=== PATIENT | female | born 1955 | race American Indian/Alaskan Native ===

== ENCOUNTER 2018-01-02 16:38 | Emergency (ER) | payer BC, OTHER ==
[2018-01-02] MEDS ORDERED: Metoclopramide 10 MG/2 ML SDV IV ONE (16:44)
[2018-01-02] MEDS ORDERED: Ondansetron 4 MG/2 ML SDV IVPUSH ONE (16:44)
[2018-01-02] MEDS ORDERED: diphenhydrAMINE 50 MG/ML SDV IVPUSH ONE (16:44)
[2018-01-02] MEDS ORDERED: Ketorolac 30 MG/ML SDV IVPUSH ONE (16:44)
[2018-01-02] MEDS ORDERED: Sodium Chloride 0.9% 1,000 ML IV ONE (16:44)
[2018-01-02 16:48] VITALS: BP 125/84
--- NOTE | 2018-01-02 16:52 | EDM.PDOC ---
ED HPI GENERAL MEDICAL PROBLEM - General Chief Complaint: Headache Stated Complaint: DIZZY/MIGRAINE Time Seen by Provider: 01/02/18 16:39 Source of Information: Reports: Patient History Limitations: Reports: No Limitations - History of Present Illness INITIAL COMMENTS - FREE TEXT/NARRATIVE: HISTORY AND PHYSICAL: History of present illness: Patient is a 62-year-old female who presents to the emergency room with complaints of dizziness and migraine headache. She states she has a long- standing history of migraines and has used Fiorinal with good relief. As of recently she has been increase in the frequency she's been getting migraines. Normally she may get 2-3 per month but over the past several days she has had them daily, with "3 today". Last week she saw her primary care provider who placed her on Topamax. She was instructed to take one tab and increase that to as tolerated. She states the medication has been "going well" until today. She woke up with a migraine headache and took a Fiorinal. Came dizzy and felt unbalanced and fell back into the TV stand. She is here at the emergency room with concerns that "something more is wrong... I've never had 3 migraines in 1 day". Her migraine headache is associated with dizziness, nausea, light sensitivity, and noise sensitivity. Reports she has the long-standing history of migraine headaches although has never had any CT or MRI of her brain. She denies any chest pain, palpitations, shortness of breath, fever or chills. She denies any abdominal pain, vomiting, diarrhea or constipation. Review of systems: As per history of present illness and below otherwise all systems reviewed and negative. Past medical history: As per history of present illness and as reviewed below otherwise noncontributory. Surgical history: As per history of present illness and as reviewed below otherwise noncontributory. Social history: No reported history of drug or alcohol abuse. Family history: As per history of present illness and as reviewed below otherwise noncontributory. Physical exam: General: Well developed and well-nourished 62-year-old female. Alert and oriented. Nontoxic appearing and in no acute distress. HEENT: Atraumatic, normocephalic, pupils equal and reactive bilaterally, negative for conjunctival pallor or scleral icterus, mucous membranes moist, throat clear, neck supple, nontender, trachea midline. No drooling or trismus noted. No meningeal signs Lungs: Clear to auscultation, breath sounds equal bilaterally, chest nontender. Heart: S1S2, regular rate and rhythm without overt murmur Abdomen: Soft, nondistended, nontender. Negative for masses or hepatosplenomegaly. Negative for costovertebral tenderness. Pelvis: Stable nontender. Genitourinary: Deferred. Rectal: Deferred. Skin: Intact, warm, dry. No lesions or rashes noted. Extremities: Atraumatic, negative for cords or calf pain. Neurovascular unremarkable. Neuro: Awake, alert, oriented. Cranial nerves II through XII unremarkable. Cerebellum unremarkable. Motor and sensory unremarkable throughout. Exam nonfocal. Notes: Discussed possible testing options available through the emergency room. She would like a head CT done today. I will do routine lab work along with a troponin as she had a dizzy episode which sounds possibly near syncopal (r/o cardiac involvement). Medications for migraine will be given, her is here with her. CBC, CMP, troponin are normal. EKG shows a normal sinus rhythm with a heart rate of 55. The patient states that her "normal" is usually hypotensive with a low-pulse rate in the 50s to 60s. Head CT shows no acute findings. This information was shared with the patient. She states she does feel "much better" after receiving the IV fluid and medications. She says her dizziness and migraine pain has subsided a lot. She feels comfortable going home. I did offer admission (if she wasn't feeling better or uncomfortable going home) which she declined. She has an appointment next week with her primary caregiver. We discussed the need for follow up with a neurologist to help resolve her increasingly problematic migraines and further management. She is agreeable and voices understanding. She denies any further questions at this time. Diagnostics: CBC, CMP, Troponin, EKG, Head CT Therapeutics: IV fluid, Zofran, Reglan, Toradol, Benadryl Impression: Migraine Headache Dizziness Plan: 1. Labs and head CT were normal today. I do not have an explanation as to why your migraines are becoming more frequent. I would like you to follow-up with a neurologist for better management of your migraine headaches and to come up with a treatment plan that works best for you. 2. Increase your fluids to prevent dehydration. You may use an [id number] meclizine for dizziness if this continues. 3. Return to the ED as needed and as discussed. Definitive disposition and diagnosis as appropriate pending reevaluation and review of above. Duration: Chronic Location: Reports: Head Frontal Headache Pain Score (Numeric/FACES): 9 - Related Data Allergies Allergy/AdvReac Type Severity Reaction Status Date / Time codeine Allergy Abdominal Verified 01/02/18 16:45 Pain morphine Allergy Swelling Verified 01/02/18 16:45 adhesive Allergy Redness Uncoded 01/02/18 16:45 Home Meds: Home Meds Allopurinol [Zyloprim] 300 mg PO DAILY 05/19/14 [History] Hydrochlorothiazide 25 mg PO DAILY 05/19/14 [History] Sucralfate [Carafate] 1 gm PO BID 05/19/14 [History] Butalbital/Aspirin/Caffeine [Fiorinal 50-325-40 MG] 1 tab PO ASDIRECTED PRN [History] Cyclobenzaprine HCl 1 tab PO ASDIRECTED PRN 09/25/16 [History] Esomeprazole Magnesium [Nexium] 1 cap PO BID 09/25/16 [History] Estradiol [Vagifem] 1 tab VAG ASDIRECTED 09/25/16 [History] L.acidoph,Paracasei, B.lactis [Probiotic] 1 cap PO DAILY 09/25/16 [History] Past Medical History HEENT History: Reports: Cataract, Impaired Vision Other HEENT History: wears glasses Cardiovascular History: Reports: None Respiratory History: Reports: None Gastrointestinal History: Reports: PUD Genitourinary History: Reports: Renal Calculus 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 Musculoskeletal History: Reports: Back Pain, Chronic Neurological History: Reports: None Psychiatric History: Reports: None Endocrine/Metabolic History: Reports: Obesity/BMI 30+ Hematologic History: Reports: Anemia, Blood Transfusion(s) Immunologic History: Reports: None Oncologic (Cancer) History: Reports: Uterine Dermatologic History: Reports: None - Past Surgical History HEENT Surgical History: Reports: Cataract Surgery GI Surgical History: Reports: Appendectomy, Bariatric Procedure, Cholecystectomy , Colonoscopy, Other (See Below) Female Surgical History: Reports: Hysterectomy, Lithotripsy/ESWL, Salpingo- Oophorectomy Musculoskeletal Surgical History: Reports: Arthroscopic Procedure Social & Family History - Family History Family Medical History: Noncontributory - Tobacco Use Smoking Status *Q: Never Smoker Second Hand Smoke Exposure: No - Alcohol Use Days Per Week of Alcohol Use: 0 Number of Drinks Per Day: 0 Total Drinks Per Week: 0 - Recreational Drug Use Recreational Drug Use: No Drug Use in Last 12 Months: No ED ROS GENERAL - Review of Systems Review Of Systems: ROS reveals no pertinent complaints other than HPI. - Physical Exam Exam: See Below (See dictation) Course - Vital Signs Last Recorded V/S: Last Vital Signs Temp 97.9 F 01/02/18 16:45 Pulse 75 01/02/18 16:45 Resp 18 01/02/18 16:45 BP 125/84 01/02/18 16:45 Pulse Ox 97 01/02/18 16:45 - Orders/Labs/Meds Orders: Active Orders 24 hr Category Date Time Status EKG Documentation Completion [RC] STAT Care 01/02/18 16:44 Active Head wo Cont [CT] Stat Exams 01/02/18 16:44 Taken Labs: Laboratory Tests 01/02/18 01/02/18 Range/Units 16:51 16:51 WBC 6.58 (4.0-11.0) K/uL RBC 4.26 L (4.30-5.90) M/uL Hgb 13.3 (12.0-16.0) g/dL Hct 38.3 (36.0-46.0) % MCV 89.9 (80.0-98.0) fL MCH 31.2 (27.0-32.0) pg MCHC 34.7 (31.0-37.0) g/dL RDW Std Deviation 45.2 (28.0-62.0) fl RDW Coeff of Mustapha 14 (11.0-15.0) % Plt Count 247 (150-400) K/uL MPV 10.00 (7.40-12.00) fL Neut % (Auto) 54.8 (48.0-80.0) % Lymph % (Auto) 34.5 (16.0-40.0) % [place] % (Auto) 8.4 (0.0-15.0) % Eos % (Auto) 2.0 (0.0-7.0) % Baso % (Auto) 0.3 (0.0-1.5) % Neut # (Auto) 3.6 (1.4-5.7) K/uL Lymph # (Auto) 2.3 (0.6-2.4) K/uL [place] # (Auto) 0.6 (0.0-0.8) K/uL Eos # (Auto) 0.1 (0.0-0.7) K/uL Baso # (Auto) 0.0 (0.0-0.1) K/uL Nucleated RBC % 0.0 /100WBC Nucleated RBCs # 0 K/uL Sodium 137 (136-145) mmol/L Potassium 3.4 L (3.5-5.1) mmol/L Chloride 101 (98-107) mmol/L Carbon Dioxide 28.1 (21.0-32.0) mmol/L BUN 17 (7.0-18.0) mg/dL Creatinine 1.0 (0.6-1.0) mg/dL Est Cr Clr Drug Dosing 42.43 mL/min Estimated GFR (MDRD) 56.4 ml/min Glucose 97 (74-106) mg/dL Calcium 9.5 (8.5-10.1) mg/dL Total Bilirubin 0.2 (0.2-1.0) mg/dL AST 27 (15-37) IU/L ALT 26 (14-63) IU/L Alkaline Phosphatase 138 H (46-116) U/L Troponin I < 0.050 (0.000-0.056) ng/mL Total Protein 7.4 (6.4-8.2) g/dL Albumin 3.7 (3.4-5.0) g/dL Globulin 3.7 H (2.0-3.5) g/dL Albumin/Globulin Ratio 1.0 L (1.3-2.8) Meds: Medications Discontinued Medications Generic Name Dose Route Start Last Admin Trade Name Freq PRN Reason Stop Dose Admin Diphenhydramine HCl 50 mg 01/02/18 16:44 01/02/18 17:10 Benadryl IVPUSH 01/02/18 16:45 50 mg ONETIME ONE Administration Sodium Chloride 1,000 mls @ 999 mls/hr 01/02/18 16:44 01/02/18 17:00 Normal Saline IV 01/02/18 17:44 999 mls/hr STAT ONE Administration Ketorolac Tromethamine 30 mg 01/02/18 16:44 01/02/18 17:06 Toradol IVPUSH 01/02/18 16:45 30 mg ONETIME ONE Administration Metoclopramide HCl 10 mg 01/02/18 16:44 01/02/18 17:08 Reglan IV 01/02/18 16:45 10 mg ONETIME ONE Administration Ondansetron HCl 4 mg 01/02/18 16:44 01/02/18 17:02 Zofran IVPUSH 01/02/18 16:45 4 mg ONETIME ONE Administration Departure - Departure Time of Disposition: 18:03 Disposition: Home, Self-Care 01 Clinical Impression: Migraine - Discharge Information Instructions: Migraine Headache, [id number] Referrals: PCP,None [Primary Care Provider] - Forms: ED Department Discharge Additional Instructions: The following information is given to patients seen in the emergency department who are being discharged to home. This information is to outline your options for follow-up care. We provide all patients seen in our emergency department with a follow-up referral. The need for follow-up, as well as the timing and circumstances, are variable depending upon the specifics of your emergency department visit. If you don't have a primary care physician on staff, we will provide you with a referral. We always advise you to contact your personal physician following an emergency department visit to inform them of the circumstance of the visit and for follow-up with them and/or the need for any referrals to a consulting specialist. The emergency department will also refer you to a specialist when appropriate. This referral assures that you have the opportunity for follow-up care with a specialist. All of these measure are taken in an effort to provide you with optimal care, which includes your follow-up. Under all circumstances we always encourage you to contact your private physician who remains a resource for coordinating your care. When calling for follow-up care, please make the office aware that this follow-up is from your recent emergency room visit. If for any reason you are refused follow-up, please contact the [facility] Emergency Department at and asked to speak to the emergency department charge nurse. [facility] [address] [place] [id number] [facility] Special[facility] - Neurology Professional Building [address] [place] [address], [address] [place] [address] 1. Labs and head CT were normal today. I do not have an explanation as to why your migraines are becoming more frequent. I would like you to follow-up with a neurologist for better management of your migraine headaches and to come up with a treatment plan that works best for you. 2. Increase your fluids to prevent dehydration. You may use an [id number] meclizine for dizziness if this continues. 3. Return to the ED as needed and as discussed. - My Orders Last 24 Hours: My Active Orders 01/02/18 16:44 EKG Documentation Completion [RC] STAT Head wo Cont [CT] Stat - Assessment/Plan Last 24 Hours: My Active Orders 01/02/18 16:44 EKG Documentation Completion [RC] STAT Head wo Cont [CT] Stat
[2018-01-02 17:21] LABS: CHLORIDE,CL 101 mmol/L (98-107); SODIUM,NA 137 mmol/L (136-145)
--- NOTE | 2018-01-03 09:32 | CT ---
EXAM DATE: 01/02/18 PATIENT'S AGE: 62 Patient: STEPHANE HARRY Facility: [place], [place] Site . Site : 1955 Study: CT Head [id number] 5:50:18 PM Ordering Physician: Doctor Millan Final Report: INDICATION: Headache, dizziness, fall. TECHNIQUE: Standard noncontrast head CT performed. FINDINGS: There is no intracranial hemorrhage or fluid collection. The knapp-white matter differentiation is maintained. The ventricles are of normal size and morphology. The basal cisterns are clear. The visualized orbits, sinuses and mastoids are unremarkable. The calvarium is intact. IMPRESSION: No acute intracranial abnormality. Please note that all CT scans at this facility use dose modulation, iterative reconstruction, and/or weight-based dosing when appropriate to reduce radiation dose to as low as reasonably achievable. Dictated by Vinny Horton MD @ Jan 02 2018 5:52PM (Electronic Signature) Report Signed by Proxy. MTDD
== END 2018-01-02 18:25 | disposition home or self-care (01) ==
LOC: MW.ED 16:38
DX: G43.909 Migraine, unspecified, not intractable, without status migrainosus (principal); Z88.5 Allergy status to narcotic agent; Z91.09 Other allergy status, other than to drugs and biological substances; Z79.899 Other long term (current) drug therapy
CPT/HCPCS: 36415; 70450; 80053; 84484; 85025; 96361; 96374; 96375; 99284; J1200; J1885; J2405; J2765; J7040; 99283

== ENCOUNTER 2019-05-16 13:29 | Emergency (ER) | payer BC, OTHER ==
[2019-05-16] MEDS ORDERED: HYDROmorphone 1 MG/ML Syringe IM ONE (13:57)
[2019-05-16] MEDS ORDERED: Ondansetron 4 MG Tab.DIS PO ONE (13:57)
--- NOTE | 2019-05-16 14:06 | EDM.PDOC ---
ED HPI GENERAL MEDICAL PROBLEM - General Chief Complaint: Lower Extremity Injury/Pain Stated Complaint: PAIN IN LEFT LEG AND HIP Time Seen by Provider: 05/16/19 13:40 Source of Information: Reports: Patient History Limitations: Reports: No Limitations - History of Present Illness INITIAL COMMENTS - FREE TEXT/NARRATIVE: History of present illness: []Patient has chronic left hip pain and is scheduled for hip replacement by Dr. Aguilar on June 12 mahnaz and Sobeida. Today she spontaneously started having severe left hip pain where she was unable to bear weight and pain radiated down her leg. He denies any numbness or tingling, back pain or incontinence. She states she did not fall or twist or have any type of new injury to the hip. She had an MRI of her hip done recently which showed ischiofemoral impingement and arthritis. He should states the only occasion that works for her is Dilaudid she has bad reactions to every other medication. Review of systems: As per history of present illness and below otherwise all systems reviewed and negative. Past medical history: As per history of present illness and as reviewed below otherwise noncontributory. Surgical history: As per history of present illness and as reviewed below otherwise noncontributory. Social history: No reported history of drug or alcohol abuse. Family history: As per history of present illness and as reviewed below otherwise noncontributory. Physical exam: General: Well developed, well nourished in NAD HEENT: Atraumatic, normocephalic, pupils reactive, negative for conjunctival pallor or scleral icterus, mucous membranes moist, throat clear, neck supple, nontender, trachea midline. Lungs: Clear to auscultation, breath sounds equal bilaterally, chest nontender. Heart: S1S2, regular, negative for clicks, rubs, or JVD. Abdomen: NABS, Soft, nondistended, nontender. Negative for masses or hepatosplenomegaly. Negative for costovertebral tenderness. Pelvis: Stable nontender. Genitourinary: Deferred. Rectal: Deferred. Extremities: Atraumatic, negative for cords or calf pain. Neurovascular unremarkable. Neuro: Awake, alert, oriented. Cranial nerves II through XII unremarkable. Cerebellum unremarkable. Motor and sensory unremarkable throughout. Exam nonfocal. Skin:warm and dry Diagnostics: None Therapeutics: Dilaudid and Zofran ED Course: Stable patient does not want to use crutches she states she has a walker at home and can use a scooter at work Impression: Left hip pain Prescriptions: Dilaudid 2 mg tablets #10, no refills Plan: Take meds as directed, follow up with your primary care physician, return to ER if symptoms worsen or change. Definitive disposition and diagnosis as appropriate pending reevaluation and review of above. Left Leg Pain Score (Numeric/FACES): 8 - Related Data Allergies Allergy/AdvReac Type Severity Reaction Status Date / Time codeine Allergy Abdominal Verified 05/16/19 13:49 Pain morphine Allergy Swelling Verified 05/16/19 13:49 adhesive Allergy Redness Uncoded 05/16/19 13:49 Home Meds: Home Meds Allopurinol [Zyloprim] 500 mg PO DAILY 05/19/14 [History] Hydrochlorothiazide 25 mg PO DAILY 05/19/14 [History] Sucralfate [Carafate] 1 gm PO QID 05/19/14 [History] Esomeprazole Magnesium [Nexium] 1 cap PO BID 09/25/16 [History] Aspirin/Butalbital/Caffeine [Fiorinal 50-325-40 MG] 1 cap PO DAILY 01/02/18 [ History] Topiramate [Trokendi Xr] 25 mg PO ASDIRECTED 01/02/18 [History] HYDROmorphone [Dilaudid] 1 mg PO Q6H PRN #10 tab 05/16/19 [Rx] Past Medical History HEENT History: Reports: Cataract, Impaired Vision Other HEENT History: wears glasses Cardiovascular History: Reports: None Respiratory History: Reports: None Gastrointestinal History: Reports: PUD Genitourinary History: Reports: Renal Calculus 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 Musculoskeletal History: Reports: Back Pain, Chronic Neurological History: Reports: None Psychiatric History: Reports: None Endocrine/Metabolic History: Reports: Obesity/BMI 30+ Hematologic History: Reports: Anemia, Blood Transfusion(s) Immunologic History: Reports: None Oncologic (Cancer) History: Reports: Uterine Dermatologic History: Reports: None - Past Surgical History Head Surgeries/Procedures: Reports: None HEENT Surgical History: Reports: Cataract Surgery, Tonsillectomy GI Surgical History: Reports: Appendectomy, Bariatric Procedure, Cholecystectomy , Colonoscopy, Other (See Below) Female Surgical History: Reports: Hysterectomy, Lithotripsy/ESWL, Salpingo- Oophorectomy Musculoskeletal Surgical History: Reports: Arthroscopic Procedure, Shoulder Surgery Social & Family History - Family History Family Medical History: Noncontributory - Tobacco Use Smoking Status *Q: Never Smoker - Caffeine Use Caffeine Use: Reports: Soda - Recreational Drug Use Recreational Drug Use: No Review of Systems - Review of Systems Review Of Systems: See Below ED EXAM, GENERAL - Physical Exam Exam: See Below Course - Vital Signs Last Recorded V/S: Last Vital Signs Temp 97.0 F 05/16/19 13:47 Pulse 64 05/16/19 13:47 Resp 18 05/16/19 13:47 BP 134/74 05/16/19 13:47 Pulse Ox 96 05/16/19 13:47 - Orders/Labs/Meds Meds: Medications Discontinued Medications Generic Name Dose Route Start Last Admin Trade Name Freq PRN Reason Stop Dose Admin Hydromorphone HCl 1 mg 05/16/19 13:57 Dilaudid IM 05/16/19 13:58 ONETIME ONE Ondansetron HCl 4 mg 05/16/19 13:57 Zofran Odt PO 05/16/19 13:58 ONETIME ONE Departure - Departure Time of Disposition: 14:04 Disposition: Home, Self-Care 01 Condition: Good Clinical Impression: Left hip pain - Discharge Information *PRESCRIPTION DRUG MONITORING PROGRAM REVIEWED*: No *COPY OF PRESCRIPTION DRUG MONITORING REPORT IN PATIENT GAGE: No Prescriptions: HYDROmorphone [Dilaudid] 1 mg PO Q6H PRN #10 tab PRN Reason: Pain Referrals: PCP,Not In Area [Primary Care Provider] - Additional Instructions: The following information is given to patients seen in the emergency department who are being discharged to home. This information is to outline your options for follow-up care. We provide all patients seen in our emergency department with a follow-up referral. The need for follow-up, as well as the timing and circumstances, are variable depending upon the specifics of your emergency department visit. If you don't have a primary care physician on staff, we will provide you with a referral. We always advise you to contact your personal physician following an emergency department visit to inform them of the circumstance of the visit and for follow-up with them and/or the need for any referrals to a consulting specialist. The emergency department will also refer you to a specialist when appropriate. This referral assures that you have the opportunity for follow-up care with a specialist. All of these measure are taken in an effort to provide you with optimal care, which includes your follow-up. Under all circumstances we always encourage you to contact your private physician who remains a resource for coordinating your care. When calling for follow-up care, please make the office aware that this follow-up is from your recent emergency room visit. If for any reason you are refused follow-up, please contact the [facility] Emergency Department at and asked to speak to the emergency department charge nurse. Take meds as directed, follow up with your primary care physician, return to ER if symptoms worsen or change. [facility] [address] [place] [id number]
[2019-05-16 14:40] VITALS: BP 109/62; PULSE 66
== END 2019-05-16 14:41 | disposition home or self-care (01) ==
LOC: MW.ED 13:29
DX: M25.552 Pain in left hip (principal); E66.9 Obesity, unspecified; Z68.30 Body mass index [BMI] 30.0-30.9, adult; Z88.5 Allergy status to narcotic agent; Z79.82 Long term (current) use of aspirin; Z79.84 Long term (current) use of oral hypoglycemic drugs; Z79.899 Other long term (current) drug therapy
CPT/HCPCS: 96372; 99283; A9270; J1170

== ENCOUNTER 2019-06-02 17:12 | Observation (INO) | payer BC, OTHER ==
[2019-06-02] MEDS ORDERED: Sodium Chloride 0.9% 10 ML Syringe FLUSH PRN (17:14)
[2019-06-02] MEDS ORDERED: Sodium Chloride 0.9% 2.5 ML Syringe FLUSH PRN (17:14)
[2019-06-02] MEDS ORDERED: Sodium Chloride 0.9% 1,000 ML IV ONE (17:14)
--- NOTE | 2019-06-02 17:15 | EDM.PDOC ---
ED HPI GENERAL MEDICAL PROBLEM - General Chief Complaint: Chest Pain Stated Complaint: CHEST PAIN Time Seen by Provider: 06/02/19 17:15 Source of Information: Reports: Patient History Limitations: Reports: No Limitations - History of Present Illness INITIAL COMMENTS - FREE TEXT/NARRATIVE: HISTORY AND PHYSICAL: History of present illness: Patient is a 63-year-old female presented to the ED with complaint of chest pain. She states that 3 days ago while mowing her lawn she had a midsternal burning chest pain that radiated to her back. She thought maybe she is having reflux and took Carafate and rested and shortly after it resolved. She went back outside to mow again and this occurred again. She states that she was outside so she was sweating when this occurred and was slightly short of breath. She states it resolved after an hour. Since then she has been having a heaviness in her chest. She is not having any shortness of breath, diaphoresis, nausea, vomiting, abdominal pain, diarrhea, headache, dizziness. Patient has history of migraines and kidney stones but denies past cardiac history. Denies tobacco or illicit drug use. Review of systems: As per history of present illness and below otherwise all systems reviewed and negative. Past medical history: As per history of present illness and as reviewed below otherwise noncontributory. Surgical history: As per history of present illness and as reviewed below otherwise noncontributory. Social history: No reported history of drug or alcohol abuse. Family history: As per history of present illness and as reviewed below otherwise noncontributory. Physical exam: General: Patient sitting comfortably in no acute distress and nontoxic appearing HEENT: Atraumatic, normocephalic, pupils reactive, negative for conjunctival pallor or scleral icterus, mucous membranes moist, throat clear, neck supple, nontender, trachea midline. No meningeal signs. Lungs: Clear to auscultation, breath sounds equal bilaterally, chest nontender. Heart: S1S2, regular, negative for clicks, rubs, or overt murmur. Abdomen: Soft, nondistended, nontender. Negative for masses or hepatosplenomegaly. Negative for costovertebral tenderness. No rigidity, rebound , guarding. Pelvis: Stable nontender. Genitourinary: Deferred. Rectal: Deferred. Extremities: Atraumatic, negative for cords or calf pain. Neurovascular unremarkable. Neuro: Awake, alert, oriented. Cranial nerves II through XII unremarkable. Cerebellum unremarkable. Motor and sensory unremarkable throughout. Exam nonfocal. Notes: Diagnostics: CBC, CMP, troponin, EKG, chest x-ray Therapeutics: 1L NS IV 40mEq Potassium PO Prescriptions: Impression: Chest pain r/o ACS, hypokalemia Plan: Discussed with Dr. James, patient will be admitted to observation on telemetry. Definitive disposition and diagnosis as appropriate pending reevaluation and review of above. chest Pain Score (Numeric/FACES): 3 - Related Data Allergies Allergy/AdvReac Type Severity Reaction Status Date / Time codeine Allergy Abdominal Verified 06/02/19 17:12 Pain morphine Allergy Swelling Verified 06/02/19 17:12 adhesive Allergy Redness Uncoded 05/16/19 13:49 Home Meds: Home Meds Allopurinol [Zyloprim] 500 mg PO DAILY 05/19/14 [History] Hydrochlorothiazide 25 mg PO DAILY 05/19/14 [History] Sucralfate [Carafate] 1 gm PO QID 05/19/14 [History] Esomeprazole Magnesium [Nexium] 1 cap PO BID 09/25/16 [History] Aspirin/Butalbital/Caffeine [Fiorinal 50-325-40 MG] 1 cap PO DAILY 01/02/18 [ History] Topiramate [Trokendi Xr] 25 mg PO ASDIRECTED 01/02/18 [History] Past Medical History HEENT History: Reports: Cataract, Impaired Vision Other HEENT History: wears glasses Cardiovascular History: Reports: None Respiratory History: Reports: None Gastrointestinal History: Reports: PUD Genitourinary History: Reports: Renal Calculus [employer] FI[employer] History: Reports: None Musculoskeletal History: Reports: Back Pain, Chronic Neurological History: Reports: None Psychiatric History: Reports: None Endocrine/Metabolic History: Reports: Obesity/BMI 30+ Hematologic History: Reports: Anemia, Blood Transfusion(s) Immunologic History: Reports: None Oncologic (Cancer) History: Reports: Uterine Dermatologic History: Reports: None - Past Surgical History HEENT Surgical History: Reports: Cataract Surgery, Tonsillectomy Musculoskeletal Surgical History: Reports: Arthroscopic Procedure, Shoulder Surgery Social & Family History - Family History Family Medical History: Noncontributory - Caffeine Use Caffeine Use: Reports: Soda ED ROS GENERAL - Review of Systems Review Of Systems: ROS reveals no pertinent complaints other than HPI. ED EXAM, GENERAL - Physical Exam Exam: See Below (See dictation) Course - Vital Signs Last Recorded V/S: Last Vital Signs Temp 96.2 F 06/02/19 17:13 Pulse 62 06/02/19 17:13 Resp 16 06/02/19 17:13 BP 136/79 06/02/19 17:13 Pulse Ox 97 06/02/19 17:13 - Orders/Labs/Meds Orders: Active Orders 24 hr Category Date Time Status Cardiac Monitoring [RC] . DIRECTED Care 06/02/19 17:14 Active EKG Documentation Completion [RC] STAT Care 06/02/19 17:15 Active MAGNESIUM [CHEM] Stat Lab 06/02/19 19:17 Ordered TROPONIN I [CHEM] Q6H Lab 06/02/19 23:15 Ordered TROPONIN I [CHEM] Q6H Lab 06/03/19 05:15 Ordered UA W/MICROSCOPIC [URIN] Stat Lab 06/02/19 17:15 Ordered Sodium Chloride 0.9% [Saline Flush] Med 06/02/19 17:14 Active 10 ml FLUSH ASDIRECTED PRN Sodium Chloride 0.9% [Saline Flush] Med 06/02/19 17:14 Active 2.5 ml FLUSH ASDIRECTED PRN Saline Lock Insert [OM.PC] Stat Oth 06/02/19 17:14 Ordered Medication Orders Sodium Chloride (Saline Flush) 10 ml FLUSH ASDIRECTED PRN PRN Reason: Keep Vein Open Sodium Chloride (Saline Flush) 2.5 ml FLUSH ASDIRECTED PRN PRN Reason: Keep Vein Open Labs: Laboratory Tests 06/02/19 06/02/19 06/02/19 Range/Units 17:15 17:15 17:15 WBC 11.06 H (4.0-11.0) K/uL RBC 4.66 (4.30-5.90) M/uL Hgb 14.5 (12.0-16.0) g/dL Hct 42.1 (36.0-46.0) % MCV 90.3 (80.0-98.0) fL MCH 31.1 (27.0-32.0) pg MCHC 34.4 (31.0-37.0) g/dL RDW Std Deviation 45.0 (28.0-62.0) fl RDW Coeff of Mustapha 14 (11.0-15.0) % Plt Count 305 (150-400) K/uL MPV 10.60 (7.40-12.00) fL Neut % (Auto) 62.5 (48.0-80.0) % Lymph % (Auto) 28.3 (16.0-40.0) % [place] % (Auto) 8.4 (0.0-15.0) % Eos % (Auto) 0.7 (0.0-7.0) % Baso % (Auto) 0.1 (0.0-1.5) % Neut # (Auto) 6.9 H (1.4-5.7) K/uL Lymph # (Auto) 3.1 H (0.6-2.4) K/uL [place] # (Auto) 0.9 H (0.0-0.8) K/uL Eos # (Auto) 0.1 (0.0-0.7) K/uL Baso # (Auto) 0.0 (0.0-0.1) K/uL Nucleated RBC % 0.0 /100WBC Nucleated RBCs # 0 K/uL INR 0.99 Sodium 136 (136-145) mmol/L Potassium 2.8 L (3.5-5.1) mmol/L Chloride 97 L (98-107) mmol/L Carbon Dioxide 31.2 (21.0-32.0) mmol/L BUN 17 (7.0-18.0) mg/dL Creatinine 0.8 (0.6-1.0) mg/dL Est Cr Clr Drug Dosing 52.37 mL/min Estimated GFR (MDRD) > 60.0 ml/min Glucose 110 H (74-106) mg/dL Calcium 9.9 (8.5-10.1) mg/dL Total Bilirubin 0.4 (0.2-1.0) mg/dL AST 26 (15-37) IU/L ALT 26 (14-63) IU/L Alkaline Phosphatase 139 H (46-116) U/L Troponin I < 0.050 (0.000-0.056) ng/mL Total Protein 7.7 (6.4-8.2) g/dL Albumin 3.8 (3.4-5.0) g/dL Globulin 3.9 (2.6-4.0) g/dL Albumin/Globulin Ratio 1.0 (0.9-1.6) Meds: Medications Generic Name Dose Route Start Last Admin Trade Name Bill PRN Reason Stop Dose Admin Sodium Chloride 10 ml 06/02/19 17:14 Saline Flush FLUSH ASDIRECTED PRN Keep Vein Open Sodium Chloride 2.5 ml 06/02/19 17:14 Saline Flush FLUSH ASDIRECTED PRN Keep Vein Open Discontinued Medications Generic Name Dose Route Start Last Admin Trade Name Bill PRN Reason Stop Dose Admin Sodium Chloride 1,000 mls @ 999 mls/hr 06/02/19 17:14 06/02/19 17:23 Normal Saline IV 06/02/19 18:14 999 mls/hr BOLUS ONE Administration Potassium Chloride 40 meq 06/02/19 18:24 06/02/19 18:53 Potassium Chloride PO 06/02/19 18:25 40 meq ONETIME ONE Administration Departure - Departure Time of Disposition: 17:44 Disposition: Refer to Observation Condition: Good Clinical Impression: Hypokalemia, Chest pain Clinical Impression: (Ruled Out): Head injury Referrals: PCP,Unobtain [Primary Care Provider] - Forms: ED Department Discharge - My Orders Last 24 Hours: My Active Orders 06/02/19 17:14 Cardiac Monitoring [RC] . DIRECTED Sodium Chloride 0.9% [Saline Flush] 10 ml FLUSH ASDIRECTED PRN Sodium Chloride 0.9% [Saline Flush] 2.5 ml FLUSH ASDIRECTED PRN Saline Lock Insert [OM.PC] Stat 06/02/19 17:15 EKG Documentation Completion [RC] STAT UA W/MICROSCOPIC [URIN] Stat - Assessment/Plan Last 24 Hours: My Active Orders 06/02/19 17:14 Cardiac Monitoring [RC] . DIRECTED Sodium Chloride 0.9% [Saline Flush] 10 ml FLUSH ASDIRECTED PRN Sodium Chloride 0.9% [Saline Flush] 2.5 ml FLUSH ASDIRECTED PRN Saline Lock Insert [OM.PC] Stat 06/02/19 17:15 EKG Documentation Completion [RC] STAT UA W/MICROSCOPIC [URIN] Stat
[2019-06-02 18:05] LABS: CHLORIDE,CL 97 mmol/L (98-107); SODIUM,NA 136 mmol/L (136-145)
--- NOTE | 2019-06-02 18:18 | CR ---
Indication: Chest pain. Technique: A single AP portable view of the chest was obtained. Comparison: December 05, 2015. Findings: The heart is normal in size. The lungs are clear. No infiltrate, pleural effusion, or pneumothorax is identified. Impression: No acute cardiopulmonary process. Dictated by Cecilia Tate MD @ Jun 02 2019 6:16PM Signed by Dr. Cecilia Tate @ Jun 02 2019 6:17PM
[2019-06-02] MEDS ORDERED: Potassium Chloride 10% 20 MEQ/15 ML Soln 30 ML UD Cup PO ONE (18:24)
--- NOTE | 2019-06-02 20:12 | PCM.HP.2 ---
H&P History of Present Illness - General Date of Service: 06/02/19 Admit Problem/Dx: Admission Diagnosis/Problem Admission Diagnosis/Problem Chest pain - History of Present Illness Initial Comments - Free Text/Narative: 63 yo female who presents with three day history of chest pain. Patient reports three days ago developing substernal chest pain which she describes as a burning sensation. It occurred while mowing the yard she stopped and rested and when she started to mow again the pain reoccured. She believes she may hove gotten overheated. the next two days she has had chest pressure. She reports having chest pain when she has acid reflux. She has a history of perforated ulcers. She states the pain is different to her normal heart burn although she took Carafate and the pain did improve. chest Pain Score (Numeric/FACES): 3 - Related Data Allergies/Adverse Reactions: Allergies Allergy/AdvReac Type Severity Reaction Status Date / Time codeine Allergy Abdominal Verified 06/02/19 21:31 Pain morphine Allergy Swelling Verified 06/02/19 21:31 adhesive Allergy Redness Uncoded 06/02/19 21:31 Home Medications: Home Meds Hydrochlorothiazide 25 mg PO DAILY 05/19/14 [History] Sucralfate [Carafate] 1 gm PO QID 05/19/14 [History] Aspirin/Butalbital/Caffeine [Fiorinal 50-325-40 MG] 1 cap PO DAILY 01/02/18 [ History] Promethazine [Phenergan] 25 mg PO BEDTIME 06/02/19 [History] Allopurinol [Zyloprim] 300 mg PO DAILY 06/03/19 [History] Pantoprazole Sodium 40 mg PO DAILY 06/03/19 [History] Potassium Chloride [Klor-Con M20] 20 meq PO DAILY 14 Days #14 tab.er 06/03/19 [ Rx] Topiramate 25 mg PO BID 06/03/19 [History] Past Medical History HEENT History: Reports: Cataract, Impaired Vision Other HEENT History: wears glasses Cardiovascular History: Reports: None Respiratory History: Reports: None Gastrointestinal History: Reports: PUD Other Gastrointestinal History: two perforated ulcers Genitourinary History: Reports: Renal Calculus [employer] History: Reports: None Musculoskeletal History: Reports: Back Pain, Chronic Neurological History: Reports: None Psychiatric History: Reports: None Endocrine/Metabolic History: Reports: Obesity/BMI 30+ Hematologic History: Reports: Anemia, Blood Transfusion(s) Immunologic History: Reports: None Oncologic (Cancer) History: Reports: Uterine Dermatologic History: Reports: None - Past Surgical History HEENT Surgical History: Reports: Cataract Surgery, Tonsillectomy Musculoskeletal Surgical History: Reports: Arthroscopic Procedure, Shoulder Surgery Social & Family History - Family History Family Medical History: Noncontributory - Tobacco Use Smoking Status *Q: Never Smoker Second Hand Smoke Exposure: No - Caffeine Use Caffeine Use: Reports: Soda - Recreational Drug Use Recreational Drug Use: No H&P Review of Systems - Review of Systems: Review Of Systems: ROS reveals no pertinent complaints other than HPI. Exam - Exam Exam: See Below - Vital Signs Vital Signs: Last Vital Signs Temp 35.7 C 06/02/19 17:13 Pulse 67 06/02/19 19:19 Resp 16 06/02/19 19:19 BP 131/83 06/02/19 19:19 Pulse Ox 97 06/02/19 19:19 Weight: 67.132 kg - Exam General: Alert, Oriented Lungs: Clear to Auscultation, Normal Respiratory Effort Cardiovascular: Regular Rate, Regular Rhythm GI/Abdominal Exam: Normal Bowel Sounds, Soft, Non-Tender, No Distention. No: Guarding Extremities: Non-Tender, No Pedal Edema Skin: Warm, Dry, Intact - Patient Data Lab Results Last 24 hrs: Laboratory Results - last 24 hr 06/02/19 06/02/19 06/02/19 Range/Units 17:15 17:15 17:15 WBC 11.06 H (4.0-11.0) K/uL RBC 4.66 (4.30-5.90) M/uL Hgb 14.5 (12.0-16.0) g/dL Hct 42.1 (36.0-46.0) % MCV 90.3 (80.0-98.0) fL MCH 31.1 (27.0-32.0) pg MCHC 34.4 (31.0-37.0) g/dL RDW Std Deviation 45.0 (28.0-62.0) fl RDW Coeff of Mustapha 14 (11.0-15.0) % Plt Count 305 (150-400) K/uL MPV 10.60 (7.40-12.00) fL Neut % (Auto) 62.5 (48.0-80.0) % Lymph % (Auto) 28.3 (16.0-40.0) % [place] % (Auto) 8.4 (0.0-15.0) % Eos % (Auto) 0.7 (0.0-7.0) % Baso % (Auto) 0.1 (0.0-1.5) % Neut # (Auto) 6.9 H (1.4-5.7) K/uL Lymph # (Auto) 3.1 H (0.6-2.4) K/uL [place] # (Auto) 0.9 H (0.0-0.8) K/uL Eos # (Auto) 0.1 (0.0-0.7) K/uL Baso # (Auto) 0.0 (0.0-0.1) K/uL Nucleated RBC % 0.0 /100WBC Nucleated RBCs # 0 K/uL INR 0.99 Sodium 136 (136-145) mmol/L Potassium 2.8 L (3.5-5.1) mmol/L Chloride 97 L (98-107) mmol/L Carbon Dioxide 31.2 (21.0-32.0) mmol/L BUN 17 (7.0-18.0) mg/dL Creatinine 0.8 (0.6-1.0) mg/dL Est Cr Clr Drug Dosing 52.37 mL/min Estimated GFR (MDRD) > 60.0 ml/min Glucose 110 H (74-106) mg/dL Calcium 9.9 (8.5-10.1) mg/dL Magnesium (1.8-2.4) mg/dL Total Bilirubin 0.4 (0.2-1.0) mg/dL AST 26 (15-37) IU/L ALT 26 (14-63) IU/L Alkaline Phosphatase 139 H (46-116) U/L Troponin I < 0.050 (0.000-0.056) ng/mL Total Protein 7.7 (6.4-8.2) g/dL Albumin 3.8 (3.4-5.0) g/dL Globulin 3.9 (2.6-4.0) g/dL Albumin/Globulin Ratio 1.0 (0.9-1.6) 06/02/19 Range/Units 17:15 WBC (4.0-11.0) K/uL RBC (4.30-5.90) M/uL Hgb (12.0-16.0) g/dL Hct (36.0-46.0) % MCV (80.0-98.0) fL MCH (27.0-32.0) pg MCHC (31.0-37.0) g/dL RDW Std Deviation (28.0-62.0) fl RDW Coeff of [place]ha (11.0-15.0) % Plt Count (150-400) K/uL MPV (7.40-12.00) fL Neut % (Auto) (48.0-80.0) % Lymph % (Auto) (16.0-40.0) % [place] % (Auto) (0.0-15.0) % Eos % (Auto) (0.0-7.0) % Baso % (Auto) (0.0-1.5) % Neut # (Auto) (1.4-5.7) K/uL Lymph # (Auto) (0.6-2.4) K/uL [place] # (Auto) (0.0-0.8) K/uL Eos # (Auto) (0.0-0.7) K/uL Baso # (Auto) (0.0-0.1) K/uL Nucleated RBC % /100WBC Nucleated RBCs # K/uL INR Sodium (136-145) mmol/L Potassium (3.5-5.1) mmol/L Chloride (98-107) mmol/L Carbon Dioxide (21.0-32.0) mmol/L BUN (7.0-18.0) mg/dL Creatinine (0.6-1.0) mg/dL Est Cr Clr Drug Dosing mL/min Estimated GFR (MDRD) ml/min Glucose (74-106) mg/dL Calcium (8.5-10.1) mg/dL Magnesium 2.1 (1.8-2.4) mg/dL Total Bilirubin (0.2-1.0) mg/dL AST (15-37) IU/L ALT (14-63) IU/L Alkaline Phosphatase (46-116) U/L Troponin I (0.000-0.056) ng/mL Total Protein (6.4-8.2) g/dL Albumin (3.4-5.0) g/dL Globulin (2.6-4.0) g/dL Albumin/Globulin Ratio (0.9-1.6) Result Diagrams: 06/02/19 17:15 06/03/19 05:58 Problem List Initiated/Reviewed/Updated: Yes Orders Last 24hrs: Active Orders 24 hr Category Date Time Status Admission Status [Patient Status] [ADT] Stat ADT 06/02/19 19:21 Active Cardiac Monitoring [RC] . DIRECTED Care 06/02/19 17:14 Active EKG Documentation Completion [RC] STAT Care 06/02/19 17:15 Active CMP [COMPREHENSIVE METABOLIC PN,CMP] [CHEM] AM Lab 06/03/19 05:11 Ordered TROPONIN I [CHEM] Q6H Lab 06/02/19 23:15 Ordered TROPONIN I [CHEM] Q6H Lab 06/03/19 05:15 Ordered UA W/MICROSCOPIC [URIN] Stat Lab 06/02/19 17:15 Ordered Esomeprazole Magnesium [Nexium] Med 06/02/19 21:00 Ordered 1 cap PO BID Sodium Chloride 0.9% [Saline Flush] Med 06/02/19 17:14 Active 10 ml FLUSH ASDIRECTED PRN Sodium Chloride 0.9% [Saline Flush] Med 06/02/19 17:14 Active 2.5 ml FLUSH ASDIRECTED PRN Topiramate [Trokendi Xr] Med 06/02/19 20:15 Ordered 25 mg PO ASDIRECTED Saline Lock Insert [OM.PC] Stat Oth 06/02/19 17:14 Ordered Medication Orders Non-Formulary Medication (Esomeprazole Magnesium [Nexium]) 1 cap PO BID TONO Non-Formulary Medication (Topiramate [Trokendi Xr]) 25 mg PO ASDIRECTED TONO Sodium Chloride (Saline Flush) 10 ml FLUSH ASDIRECTED PRN PRN Reason: Keep Vein Open Sodium Chloride (Saline Flush) 2.5 ml FLUSH ASDIRECTED PRN PRN Reason: Keep Vein Open Assessment/Plan Comment:: 63 yo female who presents with chest pain. We will trend cardiac enzymes and monitor overnight on telemetry. She was also noted to be hypokalemic and has received potassium supplementation and IV fluid bolus.
[2019-06-02] MEDS ORDERED: Promethazine 25 MG Tab PO SCH (21:10)
[2019-06-03 06:52] LABS: CHLORIDE,CL 103 mmol/L (98-107); SODIUM,NA 139 mmol/L (136-145)
[2019-06-03] MEDS ORDERED: Potassium Chloride 20 MEQ Tab.ER PO ONE (07:07)
[2019-06-03] MEDS ORDERED: Omeprazole 20 MG Cap.CR PO SCH (07:30)
[2019-06-03] MEDS ORDERED: Pantoprazole 40 MG Tab.CR PO SCH ×2 (07:30→09:00)
[2019-06-03 07:51] VITALS: BP 97/51
--- NOTE | 2019-06-03 08:24 | PCM.DCSUM1 ---
<Shayy Gudino - Last Filed: 06/03/19 10:35> Discharge Summary - Hospital Course HPI Initial Comments: Admission Date: 06/02/19 Discharge Date: 06/03/19 Admission Diagnosis: 1. Chest pain, ACS rule out 2. Hypokalemia Discharge Diagnosis: 1. Chest pain, ACS ruled out 2. Hypokalemia- improved Procedures: None Consults: None Hospital Course: The patient is a 63-year-old female with past medical history of perforated gastric ulcers, kidney stones and migraines who presented to the ER with substernal chest pressure after mowing that improved with rest and Carafate. In the ER, lab work showed a hypokalemia, negative troponin, EKG showed normal sinus rhythm without any ST elevation and a chest x-ray showed no acute cardiopulmonary process. In the ER she was given IV fluids and a dose of potassium. She was admitted to the medical surgical floor for observation and ACS rule out. She was monitored on telemetry without any significant events. Her troponins were trended and negative 3. She is no longer having chest pain. Her hypokalemia, potassium was replaced and improved. By day of discharge, the patient wanted to go home. Disposition: Home Discharge Condition: vitals stable, tolerating oral diet, ambulating without difficulty, symptom improvement Discharge Instructions: regular diet as tolerated, activity as tolerated, take medications as prescribed. Symptoms to report to physician include fever/chills , chest pain, shortness of breath, abdominal pain, erythema, drainage/discharge , or not improving as expected. You will need a stress test as an outpatient. Discharge Medications: Hydrochlorothiazide 25 mg PO DAILY Sucralfate [Carafate] 1 gm PO QID Aspirin/Butalbital/Caffeine [Fiorinal 50-325-40 MG] 1 cap PO DAILY Promethazine [Phenergan] 25 mg PO BEDTIME Allopurinol [Zyloprim] 300 mg PO DAILY Pantoprazole Sodium 40 mg PO DAILY Potassium Chloride [Klor-Con M20] 20 meq PO DAILY Topiramate 25 mg PO BID Follow-up: 1. PCP- Dr. Cooper 2. Outpatient stress test 3. Recheck potassium level with PCP - Discharge Data Discharge Date: 06/03/19 Discharge Disposition: Home, Self-Care 01 Condition: Fair - Discharge Plan Prescriptions/Med Rec: Potassium Chloride [Klor-Con M20] 20 meq PO DAILY 14 Days #14 tab.er Home Medications: Home Meds Hydrochlorothiazide 25 mg PO DAILY 05/19/14 [History] Sucralfate [Carafate] 1 gm PO QID 05/19/14 [History] Aspirin/Butalbital/Caffeine [Fiorinal 50-325-40 MG] 1 cap PO DAILY 01/02/18 [ History] Promethazine [Phenergan] 25 mg PO BEDTIME 06/02/19 [History] Allopurinol [Zyloprim] 300 mg PO DAILY 06/03/19 [History] Pantoprazole Sodium 40 mg PO DAILY 06/03/19 [History] Potassium Chloride [Klor-Con M20] 20 meq PO DAILY 14 Days #14 tab.er 06/03/19 [ Rx] Topiramate 25 mg PO BID 06/03/19 [History] Patient Handouts: Potassium chloride tablets, extended-release tablets or capsules, Hypokalemia, Nonspecific Chest Pain Referrals: Luna Cooper MD [Physician] - 06/10/19 2:00 pm - Discharge Summary/Plan Comment DC Time >30 min.: No - Patient Data Vitals - Most Recent: Last Vital Signs Temp 96.9 F 06/03/19 07:25 Pulse 59 L 06/03/19 07:25 Resp 16 06/03/19 07:25 BP 97/51 L 06/03/19 07:25 Pulse Ox 98 06/03/19 04:19 Weight - Most Recent: 67.132 kg I&O - Last 24 hours: Intake & Output 06/02/19 06/03/19 06/03/19 22:59 06:59 14:59 Intake Total 400 Output Total 200 Balance 200 Lab Results - Last 24 hrs: Laboratory Results - last 24 hr 06/02/19 06/02/19 06/02/19 Range/Units 17:15 17:15 17:15 WBC 11.06 H (4.0-11.0) K/uL RBC 4.66 (4.30-5.90) M/uL Hgb 14.5 (12.0-16.0) g/dL Hct 42.1 (36.0-46.0) % MCV 90.3 (80.0-98.0) fL MCH 31.1 (27.0-32.0) pg MCHC 34.4 (31.0-37.0) g/dL RDW Std Deviation 45.0 (28.0-62.0) fl RDW Coeff of Mustapha 14 (11.0-15.0) % Plt Count 305 (150-400) K/uL MPV 10.60 (7.40-12.00) fL Neut % (Auto) 62.5 (48.0-80.0) % Lymph % (Auto) 28.3 (16.0-40.0) % Monona % (Auto) 8.4 (0.0-15.0) % Eos % (Auto) 0.7 (0.0-7.0) % Baso % (Auto) 0.1 (0.0-1.5) % Neut # (Auto) 6.9 H (1.4-5.7) K/uL Lymph # (Auto) 3.1 H (0.6-2.4) K/uL Monona # (Auto) 0.9 H (0.0-0.8) K/uL Eos # (Auto) 0.1 (0.0-0.7) K/uL Baso # (Auto) 0.0 (0.0-0.1) K/uL Nucleated RBC % 0.0 /100WBC Nucleated RBCs # 0 K/uL INR 0.99 Sodium 136 (136-145) mmol/L Potassium 2.8 L (3.5-5.1) mmol/L Chloride 97 L (98-107) mmol/L Carbon Dioxide 31.2 (21.0-32.0) mmol/L BUN 17 (7.0-18.0) mg/dL Creatinine 0.8 (0.6-1.0) mg/dL Est Cr Clr Drug Dosing 52.37 mL/min Estimated GFR (MDRD) > 60.0 ml/min Glucose 110 H (74-106) mg/dL Calcium 9.9 (8.5-10.1) mg/dL Magnesium (1.8-2.4) mg/dL Total Bilirubin 0.4 (0.2-1.0) mg/dL AST 26 (15-37) IU/L ALT 26 (14-63) IU/L Alkaline Phosphatase 139 H (46-116) U/L Troponin I < 0.050 (0.000-0.056) ng/mL Total Protein 7.7 (6.4-8.2) g/dL Albumin 3.8 (3.4-5.0) g/dL Globulin 3.9 (2.6-4.0) g/dL Albumin/Globulin Ratio 1.0 (0.9-1.6) Urine Color Urine Appearance Urine pH (5.0-8.0) Ur Specific Story (1.001-1.035) Urine Protein (NEGATIVE) mg/dL Urine Glucose (UA) (NEGATIVE) mg/dL Urine Ketones (NEGATIVE) mg/dL Urine Occult Blood (NEGATIVE) Urine Nitrite (NEGATIVE) Urine Bilirubin (NEGATIVE) Urine Urobilinogen (<2.0) EU/dL Ur Leukocyte Esterase (NEGATIVE) Urine RBC (0-2/HPF) Urine WBC (0-5/HPF) Ur Epithelial Cells (NONE-FEW) Amorphous Sediment (NEGATIVE) Urine Bacteria (NEGATIVE) Urine Mucus (NONE-MOD) 06/02/19 06/02/19 06/02/19 Range/Units 17:15 21:05 23:06 WBC (4.0-11.0) K/uL RBC (4.30-5.90) M/uL Hgb (12.0-16.0) g/dL Hct (36.0-46.0) % MCV (80.0-98.0) fL MCH (27.0-32.0) pg MCHC (31.0-37.0) g/dL RDW Std Deviation (28.0-62.0) fl RDW Coeff of Mustapha (11.0-15.0) % Plt Count (150-400) K/uL MPV (7.40-12.00) fL Neut % (Auto) (48.0-80.0) % Lymph % (Auto) (16.0-40.0) % Monona % (Auto) (0.0-15.0) % Eos % (Auto) (0.0-7.0) % Baso % (Auto) (0.0-1.5) % Neut # (Auto) (1.4-5.7) K/uL Lymph # (Auto) (0.6-2.4) K/uL Monona # (Auto) (0.0-0.8) K/uL Eos # (Auto) (0.0-0.7) K/uL Baso # (Auto) (0.0-0.1) K/uL Nucleated RBC % /100WBC Nucleated RBCs # K/uL INR Sodium (136-145) mmol/L Potassium (3.5-5.1) mmol/L Chloride (98-107) mmol/L Carbon Dioxide (21.0-32.0) mmol/L BUN (7.0-18.0) mg/dL Creatinine (0.6-1.0) mg/dL Est Cr Clr Drug Dosing mL/min Estimated GFR (MDRD) ml/min Glucose (74-106) mg/dL Calcium (8.5-10.1) mg/dL Magnesium 2.1 (1.8-2.4) mg/dL Total Bilirubin (0.2-1.0) mg/dL AST (15-37) IU/L ALT (14-63) IU/L Alkaline Phosphatase (46-116) U/L Troponin I < 0.050 (0.000-0.056) ng/mL Total Protein (6.4-8.2) g/dL Albumin (3.4-5.0) g/dL Globulin (2.6-4.0) g/dL Albumin/Globulin Ratio (0.9-1.6) Urine Color YELLOW Urine Appearance SLT CLOUDY Urine pH 7.5 (5.0-8.0) Ur Specific Story 1.015 (1.001-1.035) Urine Protein NEGATIVE (NEGATIVE) mg/dL Urine Glucose (UA) NEGATIVE (NEGATIVE) mg/dL Urine Ketones NEGATIVE (NEGATIVE) mg/dL Urine Occult Blood NEGATIVE (NEGATIVE) Urine Nitrite NEGATIVE (NEGATIVE) Urine Bilirubin NEGATIVE (NEGATIVE) Urine Urobilinogen 0.2 (<2.0) EU/dL Ur Leukocyte Esterase NEGATIVE (NEGATIVE) Urine RBC NONE SEEN (0-2/HPF) Urine WBC 0-1 (0-5/HPF) Ur Epithelial Cells OCCASIONAL (NONE-FEW) Amorphous Sediment LIGHT (NEGATIVE) Urine Bacteria 1+ H (NEGATIVE) Urine Mucus LIGHT (NONE-MOD) 06/03/19 Range/Units 05:58 WBC (4.0-11.0) K/uL RBC (4.30-5.90) M/uL Hgb (12.0-16.0) g/dL Hct (36.0-46.0) % MCV (80.0-98.0) fL MCH (27.0-32.0) pg MCHC (31.0-37.0) g/dL RDW Std Deviation (28.0-62.0) fl RDW Coeff of Mustapha (11.0-15.0) % Plt Count (150-400) K/uL MPV (7.40-12.00) fL Neut % (Auto) (48.0-80.0) % Lymph % (Auto) (16.0-40.0) % Monona % (Auto) (0.0-15.0) % Eos % (Auto) (0.0-7.0) % Baso % (Auto) (0.0-1.5) % Neut # (Auto) (1.4-5.7) K/uL Lymph # (Auto) (0.6-2.4) K/uL Monona # (Auto) (0.0-0.8) K/uL Eos # (Auto) (0.0-0.7) K/uL Baso # (Auto) (0.0-0.1) K/uL Nucleated RBC % /100WBC Nucleated RBCs # K/uL INR Sodium 139 (136-145) mmol/L Potassium 3.1 L (3.5-5.1) mmol/L Chloride 103 (98-107) mmol/L Carbon Dioxide 30.1 (21.0-32.0) mmol/L BUN 14 (7.0-18.0) mg/dL Creatinine 0.6 (0.6-1.0) mg/dL Est Cr Clr Drug Dosing 69.83 mL/min Estimated GFR (MDRD) > 60.0 ml/min Glucose 93 (74-106) mg/dL Calcium 9.3 (8.5-10.1) mg/dL Magnesium (1.8-2.4) mg/dL Total Bilirubin 0.6 (0.2-1.0) mg/dL AST 15 (15-37) IU/L ALT 20 (14-63) IU/L Alkaline Phosphatase 109 (46-116) U/L Troponin I < 0.050 (0.000-0.056) ng/mL Total Protein 6.1 L (6.4-8.2) g/dL Albumin 2.8 L (3.4-5.0) g/dL Globulin 3.3 (2.6-4.0) g/dL Albumin/Globulin Ratio 0.9 (0.9-1.6) Urine Color Urine Appearance Urine pH (5.0-8.0) Ur Specific Story (1.001-1.035) Urine Protein (NEGATIVE) mg/dL Urine Glucose (UA) (NEGATIVE) mg/dL Urine Ketones (NEGATIVE) mg/dL Urine Occult Blood (NEGATIVE) Urine Nitrite (NEGATIVE) Urine Bilirubin (NEGATIVE) Urine Urobilinogen (<2.0) EU/dL Ur Leukocyte Esterase (NEGATIVE) Urine RBC (0-2/HPF) Urine WBC (0-5/HPF) Ur Epithelial Cells (NONE-FEW) Amorphous Sediment (NEGATIVE) Urine Bacteria (NEGATIVE) Urine Mucus (NONE-MOD) Med Orders - Current: Current Medications Pantoprazole Sodium (Protonix) 40 mg PO BID [facility] Promethazine HCl (Phenergan) 25 mg PO BEDTIME TONO Last Admin: 06/02/19 21:47 Dose: 25 mg Sodium Chloride (Saline Flush) 10 ml FLUSH ASDIRECTED PRN PRN Reason: Keep Vein Open Sodium Chloride (Saline Flush) 2.5 ml FLUSH ASDIRECTED PRN PRN Reason: Keep Vein Open Topiramate (Topamax) 25 mg PO BID TONO Discontinued Medications Sodium Chloride (Normal Saline) 1,000 mls @ 999 mls/hr IV BOLUS ONE Stop: 06/02/19 18:14 Last Admin: 06/02/19 17:23 Dose: 999 mls/hr Omeprazole (Omeprazole) 20 mg PO BIDAC TONO Pantoprazole Sodium (Protonix) 40 mg PO BIDAC [facility] Potassium Chloride (Potassium Chloride) 40 meq PO ONETIME ONE Stop: 06/02/19 18:25 Last Admin: 06/02/19 18:53 Dose: 40 meq Potassium Chloride (Klor-Con M20) 40 meq PO ONETIME ONE Stop: 06/03/19 07:08 <Arik James - Last Filed: 06/05/19 10:46> - Patient Data Vitals - Most Recent: Last Vital Signs Temp 36.1 C 06/03/19 07:25 Pulse 59 L 06/03/19 07:25 Resp 16 06/03/19 07:25 BP 97/51 L 06/03/19 07:25 Pulse Ox 98 06/03/19 04:19 Med Orders - Current: Current Medications Discontinued Medications Sodium Chloride (Normal Saline) 1,000 mls @ 999 mls/hr IV BOLUS ONE Stop: 06/02/19 18:14 Last Admin: 06/02/19 17:23 Dose: 999 mls/hr Omeprazole (Omeprazole) 20 mg PO BIDAC TONO Pantoprazole Sodium (Protonix) 40 mg PO BIDAC TONO Pantoprazole Sodium (Protonix) 40 mg PO BID [facility] Last Admin: 06/03/19 08:40 Dose: 40 mg Potassium Chloride (Potassium Chloride) 40 meq PO ONETIME ONE Stop: 06/02/19 18:25 Last Admin: 06/02/19 18:53 Dose: 40 meq Potassium Chloride (Klor-Con M20) 40 meq PO ONETIME ONE Stop: 06/03/19 07:08 Last Admin: 06/03/19 08:39 Dose: 40 meq Promethazine HCl (Phenergan) 25 mg PO BEDTIME [facility] Last Admin: 06/02/19 21:47 Dose: 25 mg Sodium Chloride (Saline Flush) 10 ml FLUSH ASDIRECTED PRN PRN Reason: Keep Vein Open Sodium Chloride (Saline Flush) 2.5 ml FLUSH ASDIRECTED PRN PRN Reason: Keep Vein Open Topiramate (Topamax) 25 mg PO BID [facility] Last Admin: 06/03/19 08:38 Dose: 25 mg - Free Text/Narrative Note: I have evaluated the patient. I have discussed findings and treatment plan with resident. I agree with the assessment and plan outlined in the following note.
[2019-06-03] MEDS ORDERED: Topiramate 50 MG Tab PO SCH (09:00)
== END 2019-06-03 12:25 | disposition home or self-care (01) ==
LOC: MW.ED 17:12 → MW.MS 19:29
PROVIDERS: ADMIT Internal Medicine; ATTEND Internal Medicine
DX: R07.2 Precordial pain (principal); E87.6 Hypokalemia; G43.909 Migraine, unspecified, not intractable, without status migrainosus; Z88.5 Allergy status to narcotic agent; Z91.048 Other nonmedicinal substance allergy status; Z87.11 Personal history of peptic ulcer disease; Z79.82 Long term (current) use of aspirin; Z79.899 Other long term (current) drug therapy
CPT/HCPCS: 36415; 71045; 80053; 81001; 83735; 84484; 85025; 85610; 93005; 96360; 99285; A9270; J7040; 99284; G0378

== ENCOUNTER 2019-06-12 07:07 | Day surgery (SDC) | payer BC, OTHER ==
[2019-06-12] MEDS ORDERED: Lactated Ringers 1,000 ML IV SCH (07:15)
[2019-06-12] MEDS ORDERED: Bupivacaine 25%/EPINEPHrine/PF 30 ML ONE (08:32)
[2019-06-12] MEDS ORDERED: EPINEPHrine 1 MG/ML SDV ONE (08:32)
[2019-06-12] MEDS ORDERED: Scopolamine 1.5 MG Transdermal Patch TRDERM PRN (08:48)
--- NOTE | 2019-06-12 08:48 | PCM.PREANE ---
Preanesthetic Assessment - Anesthesia/Transfusion/Family Hx Anesthesia History: Prior Anesthesia Without Reaction Other Type of Anesthesia Reaction Comment: REports have nausea, 'okay or better if they pre-treat me' with antiemetics Family History of Anesthesia Reaction: No Transfusion History: Prior Transfusion Without Reaction Intubation History: Unknown - Review of Systems General: No Symptoms Pulmonary: No Symptoms Cardiovascular: No Symptoms Gastrointestinal: No Symptoms Neurological: No Symptoms Other: Reports: None - Physical Assessment NPO Status Date: 06/11/19 NPO Status Time: 23:00 Vital Signs: Last Vital Signs Temp 36.2 C 06/12/19 07:15 Pulse 62 06/12/19 07:15 Resp 16 06/12/19 07:15 BP 120/57 L 06/12/19 07:15 Pulse Ox Height: 4 ft 11 in Weight: 68.946 kg ASA Class: 2 Mental Status: Alert & Oriented x3 Airway Class: Mallampati = 2 Dentition: Reports: Normal Dentition Thyro-Mental Finger Breadths: 3 Mouth Opening Finger Breadths: 2 ROM/Head Extension: Limited/Partial Lungs: Clear to Auscultation, Normal Respiratory Effort Cardiovascular: Regular Rate, Regular Rhythm - Allergies Allergies/Adverse Reactions: Allergies Allergy/AdvReac Type Severity Reaction Status Date / Time codeine Allergy Abdominal Verified 06/06/19 12:14 Pain morphine Allergy Swelling Verified 06/06/19 12:14 adhesive Allergy Redness Uncoded 06/06/19 12:43 - Blood Blood Available: No - Anesthesia Plan Pre-Op Medication Ordered: None - Acknowledgements Anesthesia Type Planned: General Anesthesia Pt an Appropriate Candidate for the Planned Anesthesia: Yes Alternatives and Risks of Anesthesia Discussed w Pt/Guardian: Yes Pt/Guardian Understands and Agrees with Anesthesia Plan: Yes PreAnesthesia Questionnaire HEENT History: Reports: Cataract, Impaired Vision, Other (See Below) Other HEENT History: wears glasses Cardiovascular History: Reports: None, Other (See Below) (recent cardiac stress test normal) Respiratory History: Reports: None Gastrointestinal History: Reports: PUD Other Gastrointestinal History: hx perferated ulcers x2 Genitourinary History: Reports: Renal Calculus [employer]OR[employer] OFFICER History: Reports: None Musculoskeletal History: Reports: Back Pain, Chronic, Osteoporosis, RA Neurological History: Reports: Migraines Psychiatric History: Reports: Depression Endocrine/Metabolic History: Reports: Obesity/BMI 30+ Hematologic History: Reports: Anemia, B12 Deficiency, Blood Transfusion(s) Immunologic History: Reports: None Oncologic (Cancer) History: Reports: None Dermatologic History: Reports: None - Past Surgical History Head Surgeries/Procedures: Reports: None HEENT Surgical History: Reports: Cataract Surgery, Tonsillectomy Cardiovascular Surgical History: Reports: None Respiratory Surgical History: Reports: None GI Surgical History: Reports: Appendectomy, Bariatric Procedure, Cholecystectomy , Colonoscopy, Other (See Below) Other GI Surgeries/Procedures: surgery for perferated gastric ulcers, bariatric surgery with appy & eileen, Female Surgical History: Reports: Hysterectomy, Lithotripsy/ESWL, Salpingo- Oophorectomy Endocrine Surgical History: Reports: None Neurological Surgical History: Reports: None Musculoskeletal Surgical History: Reports: Arthroscopic Procedure, Shoulder Surgery Other Musculoskeletal Surgeries/Procedures:: right shoulder rotator cuff repair surgery, rt hip arthroscopy with tendon repair 4 years ago Oncologic Surgical History: Reports: Biopsy of Breast Other Oncologic Surgeries/Procedures: hysterectomy for precancerous cells Dermatological Surgical History: Reports: None - SUBSTANCE USE Smoking Status *Q: Never Smoker Recreational Drug Use History: No - HOME MEDS Home Medications: Home Meds Hydrochlorothiazide 0.5 tab PO DAILY 05/19/14 [History] Sucralfate [Carafate] 1 gm PO BID 05/19/14 [History] Aspirin/Butalbital/Caffeine [Fiorinal 50-325-40 MG] 1 cap PO DAILY PRN 01/02/18 [History] Allopurinol [Zyloprim] 300 mg PO DAILY 06/03/19 [History] Cyanocobalamin (Vitamin B-12) [Cyanocobalamin Injection] 1 injection IM ASDIRECTED 06/06/19 [History] Cyclobenzaprine HCl 10 mg PO ASDIRECTED PRN 06/06/19 [History] Esomeprazole Magnesium [Nexium] 40 mg PO DAILY 06/06/19 [History] Estradiol [Vagifem] 1 tab VAG ASDIRECTED 06/06/19 [History] Potassium Chloride [K-Tab ER] 20 meq PO DAILY 06/06/19 [History] Promethazine [Phenergan] 25 mg PO BEDTIME 06/06/19 [History] Topiramate 25 mg PO BID 06/06/19 [History] - CURRENT (IN HOUSE) MEDS Current Meds: Current Medications Lactated Ringer's (Ringers, Lactated) 1,000 mls @ 100 mls/hr IV ASDIRECTED TONO Last Admin: 06/12/19 07:30 Dose: 100 mls/hr Cefazolin Sodium/Dextrose 2 gm (/ Premix) 50 mls @ 100 mls/hr IV ONETIME TONO Discontinued Medications Epinephrine HCl (Adrenalin) Confirm Administered Dose 10 mg .ROUTE .STK-MED ONE Stop: 06/12/19 08:33 Bupivacaine HCl/Epinephrine Bitart (Sensorc Mpf 0.25%-Epi [id number]) Confirm Administered Dose 30 mls @ as directed .ROUTE .STK-MED ONE Stop: 06/12/19 08:33
[2019-06-12] MEDS ORDERED: fentaNYL 250 MCG/5 ML SDV ONE (08:56)
[2019-06-12] MEDS ORDERED: Propofol 200 MG/20 ML SDV ONE (08:56)
[2019-06-12] MEDS ORDERED: Midazolam 1 MG/ML 2 ML SDV ONE (08:56)
[2019-06-12] MEDS ORDERED: ceFAZolin 1 GM Vial ONE (08:59)
[2019-06-12] MEDS ORDERED: Sodium Chloride 0.9% 20 ML ONE (08:59)
[2019-06-12] MEDS ORDERED: Lidocaine 2% 5 ML SDV ONE (08:59)
[2019-06-12] MEDS ORDERED: Famotidine 20 MG/2 ML SDV ONE (09:01)
[2019-06-12] MEDS ORDERED: ceFAZolin 2 GM in Premix Bag 1 BAG IV SCH (09:15)
[2019-06-12] MEDS ORDERED: Ondansetron 4 MG/2 ML SDV ONE (09:17)
--- NOTE | 2019-06-12 10:32 | PCM.OPNOTE ---
- General Post-Op/Procedure Note Date of Surgery/Procedure: 06/12/19 Operative Procedure(s): left hip arthroscopic trochanteric bursectomy with IT band release, open abductor repair Findings: large retracted abductor tear Pre Op Diagnosis: left hip trochanteric bursitis, IT band contracture, abductor tear Post-Op Diagnosis: same Anesthesia Technique: General LMA Primary Surgeon: Mykel Castro Mai Meat Grader: Marjorie Paiz in mLs: 50 Complications: none Condition: Good
[2019-06-12] MEDS ORDERED: Acetaminophen 1,000 MG in Premix Bag 1 BAG IV ONE (11:20)
[2019-06-12] MEDS ORDERED: HYDROmorphone 2 MG/ML Syringe ONE (11:34)
[2019-06-12] MEDS: HYDROmorphone 2 MG/ML Syringe IVPUSH ONE ×2 (11:41→11:51)
--- NOTE | 2019-06-12 12:10 | OR ---
SURGEON: Mykel Aguilar MD DATE OF PROCEDURE: 06/12/2019 PRIMARY SURGEON: Mykel Aguilar MD. LANDSCAPE ARCHITECT AND PLANNER: Marjorie Paiz PA-C. PREOPERATIVE DIAGNOSES: 1. Left hip trochanteric bursitis. 2. Iliotibial band contracture. 3. Abductor tear. POSTOPERATIVE DIAGNOSES: 1. Left hip trochanteric bursitis. 2. Iliotibial band contracture. 3. Abductor tear. OPERATION PERFORMED: Left hip arthroscopy with trochanteric bursectomy and IT band release with open abductor repair. ANESTHESIA: General with LMA. COMPLICATIONS: None. ESTIMATED BLOOD LOSS: 50 mL. SPECIMENS: None. IMPLANTS: Ramos and Nephew 5.5 helical anchors with tape x2 and 5.5 MULTIFIX anchor lateral row x1 with REGENETEN bovine bioinductive implant, large. INDICATIONS: The patient is a 63-year-old female who has undergone right hip abductor repair. She has massive adductor tear on the left. She has failed conservative management, modification therapy, injections, chronic pain on a daily basis hindering activities, and wishes to undergo surgery. She understands the risks, benefits, alternatives, complications of procedure including, but not limited to, infection, neurovascular injury, continued pain, nonresolution of symptoms, DVT, PE, stroke, IA, , re-rupture, need for postoperative protocol with protecting it while walking on walker for 6 weeks, and she wished to proceed. PA was instrumental with retraction, positioning, closing, and suture management. DESCRIPTION OF PROCEDURE: The patient was seen in preoperative area, operative extremity was marked. The patient was transferred to the operating room, placed supine on the Ramos and Nephew traction table. General anesthesia was induced and LMA was placed. She received preoperative antibiotics of Ancef. Legs were placed in the leg bars with perineal post. Left hip was prepped and draped in usual sterile fashion using alcohol followed by ChloraPrep. A formal time-out was taken identifying the correct patient, procedure, and extremity. An anterolateral portal was established anterior and superior to the greater trochanter. An arthroscope was introduced into the peritrochanteric space after abducting the leg 20 degrees and a distal portal was established about 8 cm distally and a shaver was introduced to intense bursitis obliterating the entire visualization. Complete bursectomy distally was performed exposing gluteus brandi and removed some adhesions on the posterior superior aspect of it. After complete bursectomy distally, it was switched to view from distal working proximally. A complete bursectomy was performed. There was intense bursitis obliterating visualization. There was a large tear of the entire abductors with retracted anterior and superiorly. The entire greater trochanter was exposed with the exposed bone. This was a massive tear at the entire abductor area. At this point, the IT band was released on the very lateral aspect from anterior to posteriorly, back to gluteus brandi muscle fibers preserving them. This measured approximately 6 cm from anterior to posterior. Then, the 10 insert to be mobilized as soon as adhesed underneath the IT band and the gluteus brandi. While this happened, a vessel started to bleed, however, we were unable to visualize with this, and therefore, due to, especially with a large massive tear, decision was made to open. Therefore, arthroscopic equipment was removed. A 6 cm incision over the greater trochanter was made. Dissection was carried down to subcutaneous tissues. The IT band was opened and we were able to go through that exposing the bare area. The tendon was grasped and it was able to be mobilized and pulled down under the greater trochanter, and then a shantanu was used to shantanu the exposed greater trochanter completely removing approximately 1 mm throughout the entire area. Then, on the anterior aspect of the greater trochanter, an awl was placed on the posterior aspect and two 5.5 helical anchors were placed. The first pass was used to pass all 8 sutures anterior and going superiorly with releases about 1.5 cm bite, and these were then secured down fully repairing the tendon back down to the bone. This had excellent repair and there was no tension on it. Then, 6 of the strands were placed into the MULTIFIX anchor and awl was placed down just above the vastus lateralis origin, and then this was placed down compressing the tendon down over the bone with a lateral row. The large REGENETEN bovine bioinductive graft was then placed over the tendinous repair and this was secured down to the superior aspect of the vastus lateralis and the repair with 2-0 Vicryl. The wound was thoroughly irrigated. The IT band was left open. This fat layer was closed with 0 Vicryl, subcutaneous tissues with 2-0 Stratafix, skin with running 4-0 Monocryl. Dermabond tape was placed. Portals were closed with nylon. Dressing was placed. The patient was extubated in the operative room and transferred to the recovery room in stable condition. Sponge and needle counts were correct at the end of the case. There were no complications. She will be weightbearing as tolerated with a walker protecting the left hip with aspirin for DVT prophylaxis. TERESA HANDLEY /[id number]
--- NOTE | 2019-06-12 12:57 | PCM.POSTAN ---
POST ANESTHESIA ASSESSMENT - MENTAL STATUS Mental Status: Alert, Oriented - VITAL SIGNS Vital Signs: Last Vital Signs Temp 36.1 C 06/12/19 12:12 Pulse 79 06/12/19 12:32 Resp 14 06/12/19 12:32 BP 89/55 L 06/12/19 12:32 Pulse Ox 96 06/12/19 12:32 - RESPIRATORY Respiratory Status: Respiratory Rate WNL, Airway Patent, O2 Saturation Stable - CARDIOVASCULAR CV Status: Pulse Rate WNL, Blood Pressure Stable - GASTROINTESTINAL GI Status: No Symptoms - PAIN Pain Score: 3 - POST OP HYDRATION Hydration Status: Adequate & Stable - OBSERVATIONS Free Text/Narrative:: no anesthesia problems
[2019-06-12 13:53] VITALS: BP 95/51
--- NOTE | 2019-06-13 06:50 | PCM48HPAN ---
Post Anesthesia Note - EVALUATION WITHIN 48HRS OF ANESTHETIC Vital Signs in Normal Range: Yes Patient Participated in Evaluation: Yes Respiratory Function Stable: Yes Airway Patent: Yes Cardiovascular Function Stable: Yes Hydration Status Stable: Yes Pain Control Satisfactory: Yes Nausea and Vomiting Control Satisfactory: Yes Mental Status Recovered: Yes Vital Signs: Last Vital Signs Temp 36.1 C 06/12/19 12:12 Pulse 79 06/12/19 13:52 Resp 14 06/12/19 13:52 BP 95/51 L 06/12/19 13:52 Pulse Ox 94 L 06/12/19 13:27 - COMMENTS/OBSERVATIONS Free Text/Narrative:: no anesthesia problems
== END 2019-06-12 14:31 | disposition home or self-care (01) ==
LOC: MW.SDS 07:07
PROVIDERS: ATTEND Orthopaedic Surgery
DX: M70.62 Trochanteric bursitis, left hip (principal); S76.212A Strain of adductor muscle, fascia and tendon of left thigh, initial encounter; M76.32 Iliotibial band syndrome, left leg; I10 Essential (primary) hypertension; F32.9 Major depressive disorder, single episode, unspecified; K21.9 Gastro-esophageal reflux disease without esophagitis; G43.909 Migraine, unspecified, not intractable, without status migrainosus; G25.81 Restless legs syndrome; M06.9 Rheumatoid arthritis, unspecified; M54.30 Sciatica, unspecified side; M81.0 Age-related osteoporosis without current pathological fracture; M10.9 Gout, unspecified; X58.XXXA Exposure to other specified factors, initial encounter; Z88.5 Allergy status to narcotic agent; Z91.048 Other nonmedicinal substance allergy status; Z79.82 Long term (current) use of aspirin; Z79.899 Other long term (current) drug therapy
CPT/HCPCS: 76000; A9270-GY; C1713; C1776; J0131; J0171; J0690; J1170; J2001; J2250; J2405; J2704; J3010; J3490; J7120

== ENCOUNTER 2020-06-29 06:52 | Day surgery (SDC) | payer BC, OTHER ==
[~2020-06-29 06:52] MED LIST: Lactated Ringers 1,000 ML IV SCH; Sodium Chloride 0.9% 10 ML SDV IV PRN; Sodium Chloride 0.9% 10 ML Syringe FLUSH PRN; Sodium Chloride 0.9% 2.5 ML Syringe FLUSH PRN
[2020-06-29] MEDS ORDERED: Lidocaine 2% 5 ML SDV ONE (07:05)
[2020-06-29] MEDS ORDERED: Propofol 200 MG/20 ML SDV ONE (07:05)
[2020-06-29] MEDS ORDERED: Midazolam 1 MG/ML 2 ML SDV ONE (07:05)
[2020-06-29] MEDS ORDERED: fentaNYL 100 MCG/2 ML SDV ONE (07:05)
--- NOTE | 2020-06-29 08:20 | PCM.PREANE ---
Preanesthetic Assessment - Anesthesia/Transfusion/Family Hx Anesthesia History: Prior Anesthesia Without Reaction Other Type of Anesthesia Reaction Comment: REports have nausea, 'okay or better if they pre-treat me' with antiemetics Family History of Anesthesia Reaction: No Transfusion History: Prior Transfusion Without Reaction Intubation History: Unknown - Review of Systems General: No Symptoms Pulmonary: No Symptoms Cardiovascular: No Symptoms Gastrointestinal: No Symptoms Neurological: No Symptoms Other: Reports: None - Physical Assessment NPO Status Date: 06/28/20 Vital Signs: Last Vital Signs Temp 98.1 F 06/29/20 08:05 Pulse 64 06/29/20 08:05 Resp 16 06/29/20 08:05 BP 95/55 L 06/29/20 08:05 Pulse Ox 99 06/29/20 08:05 Height: 4 ft 11 in Weight: 61.689 kg ASA Class: 2 Mental Status: Alert & Oriented x3 Airway Class: Mallampati = 2 Dentition: Reports: Normal Dentition ROM/Head Extension: Full Lungs: Clear to Auscultation, Normal Respiratory Effort Cardiovascular: Regular Rate, Regular Rhythm - Allergies Allergies/Adverse Reactions: Allergies Allergy/AdvReac Type Severity Reaction Status Date / Time codeine Allergy Abdominal Verified 06/29/20 07:58 Pain morphine Allergy Swelling Verified 06/29/20 07:58 adhesive Allergy Redness Uncoded 06/29/20 07:58 - Blood Blood Available: No - Anesthesia Plan Pre-Op Medication Ordered: None - Acknowledgements Anesthesia Type Planned: General Anesthesia Pt an Appropriate Candidate for the Planned Anesthesia: Yes Alternatives and Risks of Anesthesia Discussed w Pt/Guardian: Yes Pt/Guardian Understands and Agrees with Anesthesia Plan: Yes Additional Comments: PMH: RA- primarily in hands, on no meds, unimpaired cervical mobilitmigraines- on topamax plan: TIVA PreAnesthesia Questionnaire HEENT History: Reports: Cataract, Impaired Vision Other HEENT History: wears glasses Cardiovascular History: Reports: None, Other (See Below) Respiratory History: Reports: None Gastrointestinal History: Reports: PUD Other Gastrointestinal History: two perforated ulcers Genitourinary History: Reports: Renal Calculus BUSINESS CASE ANALYST History: Reports: None Musculoskeletal History: Reports: Back Pain, Chronic Neurological History: Reports: None Psychiatric History: Reports: Depression Endocrine/Metabolic History: Reports: Obesity/BMI 30+ Hematologic History: Reports: Anemia, Blood Transfusion(s) Immunologic History: Reports: None Oncologic (Cancer) History: Reports: Uterine Dermatologic History: Reports: None - Past Surgical History Head Surgeries/Procedures: Reports: None HEENT Surgical History: Reports: Cataract Surgery, Tonsillectomy Cardiovascular Surgical History: Reports: None Respiratory Surgical History: Reports: None GI Surgical History: Reports: Appendectomy, Bariatric Procedure, Cholecystectomy, Colonoscopy, Other (See Below) Other GI Surgeries/Procedures: hx of ulcers Female Surgical History: Reports: Hysterectomy, Lithotripsy/ESWL, Salpingo- Oophorectomy Endocrine Surgical History: Reports: None Neurological Surgical History: Reports: None Musculoskeletal Surgical History: Reports: Arthroscopic Procedure, Shoulder Surgery Other Musculoskeletal Surgeries/Procedures:: right shoulder rotator cuff repair surgery, rt hip arthroscopy with tendon repair 4 years ago Oncologic Surgical History: Reports: None Other Oncologic Surgeries/Procedures: hysterectomy Dermatological Surgical History: Reports: None - SUBSTANCE USE Smoking Status *Q: Never Smoker Recreational Drug Use History: No - HOME MEDS Home Medications: Home Meds Hydrochlorothiazide 1 tab PO DAILY 05/19/14 [History] Sucralfate [Carafate] 1 gm PO BID 05/19/14 [History] Aspirin/Butalbital/Caffeine [Fiorinal 50-325-40 MG] 1 cap PO DAILY PRN 01/02/18 [History] allopurinoL [Zyloprim] 300 mg PO DAILY 06/03/19 [History] Cyclobenzaprine HCl 10 mg PO ASDIRECTED PRN 06/06/19 [History] Esomeprazole Magnesium [Nexium] 20 mg PO DAILY 06/06/19 [History] estradioL [Vagifem] 1 tab VAG ASDIRECTED 06/06/19 [History] Cyanocobalamin (Vitamin B12) [Vitamin B12] 1 injection IM ASDIRECTED 06/23/20 [History] Potassium Chloride 20 meq PO DAILY 06/23/20 [History] Topiramate 1 tab PO ACBREAKFAST 06/23/20 [History] Topiramate 2 tab PO BEDTIME 06/23/20 [History] clonazePAM [Clonazepam] 0.5 mg PO BEDTIME PRN 06/23/20 [History] - CURRENT (IN HOUSE) MEDS Current Meds: Current Medications Lactated Ringer's (Ringers, Lactated) 1,000 mls @ 125 mls/hr IV ASDIRECTED TONO Last Admin: 06/29/20 07:35 Dose: 125 mls/hr Documented by: Sodium Chloride (Saline Flush) 10 ml FLUSH ASDIRECTED PRN PRN Reason: Keep Vein Open Sodium Chloride (Saline Flush) 2.5 ml FLUSH ASDIRECTED PRN PRN Reason: Keep Vein Open Sodium Chloride (Saline Flush) 10 ml FLUSH ASDIRECTED PRN PRN Reason: Keep Vein Open Sodium Chloride (Saline Flush) 2.5 ml FLUSH ASDIRECTED PRN PRN Reason: Keep Vein Open Sodium Chloride (Normal Saline) 10 ml IV ASDIRECTED PRN PRN Reason: IV Use Discontinued Medications Fentanyl (Sublimaze) Confirm Administered Dose 100 mcg .ROUTE .STK-MED ONE Stop: 06/29/20 07:06 Lidocaine (Xylocaine-Mpf 2%) Confirm Administered Dose 5 ml .ROUTE .STK-MED ONE Stop: 06/29/20 07:06 Midazolam HCl (Versed 1 Mg/Ml) Confirm Administered Dose 2 mg .ROUTE .STK-MED ONE Stop: 06/29/20 07:06 Propofol (Diprivan 20 Ml) Confirm Administered Dose 400 mg .ROUTE .STK-MED ONE Stop: 06/29/20 07:06
[2020-06-29] MEDS ORDERED: Glycopyrrolate 0.2 MG/ML SDV ONE (08:50)
[2020-06-29] MEDS ORDERED: ePHEDrine 50 MG/ML SDV ONE (09:06)
--- NOTE | 2020-06-29 09:29 | PCM.OPNOTE ---
- General Post-Op/Procedure Note Date of Surgery/Procedure: 06/29/20 Operative Procedure(s): Diagnostic EGD and colonoscopy Findings: Chronic stomach ulcer, diverticulosis Pre Op Diagnosis: LUQ pain, history of diverticulosis and family history colon cancer Post-Op Diagnosis: Stomach ulcer, diverticulosis Anesthesia Technique: [facility] [place] Primary Surgeon: Anita Ackerman Condition: Good
[2020-06-29 09:35] VITALS: BP 105/68; PULSE 92
--- NOTE | 2020-06-29 10:27 | PCM.POSTAN ---
POST ANESTHESIA ASSESSMENT - MENTAL STATUS Mental Status: Alert, Oriented - VITAL SIGNS Vital Signs: Last Vital Signs Temp 96.8 F L 06/29/20 09:17 Pulse 92 06/29/20 09:32 Resp 12 06/29/20 09:32 BP 105/68 06/29/20 09:32 Pulse Ox 15 L 06/29/20 09:27 - RESPIRATORY Respiratory Status: Respiratory Rate WNL, Airway Patent, O2 Saturation Stable - CARDIOVASCULAR CV Status: Pulse Rate WNL, Blood Pressure Stable - GASTROINTESTINAL GI Status: No Symptoms - POST OP HYDRATION Hydration Status: Adequate & Stable
--- NOTE | 2020-06-29 10:28 | PCM48HPAN ---
Post Anesthesia Note - EVALUATION WITHIN 48HRS OF ANESTHETIC Vital Signs in Normal Range: Yes Patient Participated in Evaluation: Yes Respiratory Function Stable: Yes Airway Patent: Yes Cardiovascular Function Stable: Yes Hydration Status Stable: Yes Pain Control Satisfactory: Yes Nausea and Vomiting Control Satisfactory: Yes Mental Status Recovered: Yes Vital Signs: Last Vital Signs Temp 96.8 F L 06/29/20 09:17 Pulse 92 06/29/20 09:32 Resp 12 06/29/20 09:32 BP 105/68 06/29/20 09:32 Pulse Ox 15 L 06/29/20 09:27
--- NOTE | 2020-06-30 22:01 | OR ---
SURGEON: ANITA ACKERMAN MD DATE OF PROCEDURE: 06/29/2020 PREOPERATIVE DIAGNOSES: Left upper quadrant pain, family history of colon cancer. POSTOPERATIVE DIAGNOSES: 1. Stomach ulcer. 2. Diverticulosis. PROCEDURE PERFORMED: Diagnostic esophagogastroduodenoscopy and diagnostic colonoscopy. PRIMARY SURGEON: Anita Ackerman MD ANESTHESIA: MAC. INSTRUMENT USED: Olympus endoscope and colonoscope. EXTENT OF EXAM: 40 cm down the Vishal limb, to the cecum. PREPARATION: Good. LIMITATIONS: None. INDICATIONS FOR EXAMINATION: The patient is a 64-year-old female who presents with complaints of left upper quadrant pain. Her past medical history is significant for a gastric bypass. She has had ulcers in her pouch before, which has resulted in perforation. The patient is currently on a PPI. The patient also has a sister who was diagnosed with colon cancer at a very young age and so the patient has undergone every 5- year colonoscopies. She has a history of diverticulosis. The patient and I discussed the need for diagnostic EGD and colonoscopy. I explained the procedure, expected perioperative course, and risks. She verbalized understanding and wishes to proceed. PROCEDURE IN DETAIL: The patient was brought into the endoscopy suite and placed in the left lateral decubitus position. A time-out was completed verifying the patient's name, age, date of , allergies, and procedure to be performed. A bite block was placed in the patient's mouth and monitored anesthesia care was induced. Continuous oxygen was provided via nasal cannula throughout the procedure. After adequate sedation was achieved, a well-lubricated endoscope was placed in the patient's mouth and advanced under direct visualization to 40 cm down the Vishal limb. At this point in time, I could not advance the scope further and a photograph was taken. The scope was then fully withdrawn while examining the upper GI anatomy. The patient's gastrojejunal anastomosis appeared healthy and pink with no evidence of ulceration, a photograph of this was taken. However, within the gastric pouch, the patient had a chronic appearing ulcer with a shallow base covered in fibrinous exudate. A photograph of this was taken. A small biopsy was taken using a cold biopsy forceps. Prior to the biopsy, there was no evidence of any recent bleeding. The scope was brought into the distal esophagus. The distal esophageal mucosa and the Z-line appeared normal. A photograph was taken. The esophageal mucosa was free of pathology and the scope was removed. A digital rectal exam was performed. This exam was within normal limits. A well-lubricated colonoscope was inserted in the rectum and advanced under direct visualization to the level of the cecum. The cecum was identified by both visual and anatomic landmarks. A photograph was taken of the cecum; however, I was unable to retroflex the scope within the cecal cap due to looping of the scope more proximally. The scope was then fully withdrawn while examining the color, texture, anatomy, and integrity of the mucosa from the cecum to the anal canal. The patient was noted to have scattered diverticula within the sigmoid colon. There was no evidence of polyps. The scope was brought into the rectum and retroflexed to allow visualization of the anal canal opening. This appeared normal and a photograph was taken. The scope was then straightened out and fully withdrawn. The cecum to anus time was 8 minutes. The patient tolerated the procedure well and was transferred to the PACU in stable condition. ENDOSCOPIC DIAGNOSES: 1. Stomach ulcer. 2. Diverticulosis. RECOMMENDATIONS: We will increase the patient's PPI dose to 40 mg b.i.d. as well as increase her Carafate dose to four times a day. I will see her again in 2 weeks to see if her pain is resolving. MARCO / EMMANUELLE /[id number]
== END 2020-06-29 10:03 | disposition home or self-care (01) ==
LOC: MW.SDS 06:52
PROVIDERS: ATTEND Surgery
DX: Z12.11 Encounter for screening for malignant neoplasm of colon (principal); K57.30 Diverticulosis of large intestine without perforation or abscess without bleeding; K25.9 Gastric ulcer, unspecified as acute or chronic, without hemorrhage or perforation; K29.50 Unspecified chronic gastritis without bleeding; E66.9 Obesity, unspecified; F32.9 Major depressive disorder, single episode, unspecified; M81.0 Age-related osteoporosis without current pathological fracture; M06.9 Rheumatoid arthritis, unspecified; Z98.84 Bariatric surgery status; Z79.899 Other long term (current) drug therapy; Z88.5 Allergy status to narcotic agent; Z91.048 Other nonmedicinal substance allergy status; Z80.0 Family history of malignant neoplasm of digestive organs; Z68.27 Body mass index [BMI] 27.0-27.9, adult
CPT/HCPCS: 43239; 45378; 88305; 88312; J2001; J2250; J2704; J3010; J3490; J7120; 00813

== ENCOUNTER 2022-07-04 17:09 | Emergency (ER) | payer BC, MEDICARE, OTHER ==
[2022-07-04] MEDS ORDERED: Ketorolac 30 MG/ML SDV IM STA (18:35)
[2022-07-04 22:57] VITALS: BP 125/70; PULSE 81
== END 2022-07-04 22:24 | disposition home or self-care (01) ==
LOC: MW.ED 17:09
DX: S92.001A Unspecified fracture of right calcaneus, initial encounter for closed fracture (principal); S22.080A Wedge compression fracture of T11-T12 vertebra, initial encounter for closed fracture; I10 Essential (primary) hypertension; K21.9 Gastro-esophageal reflux disease without esophagitis; Z88.0 Allergy status to penicillin; Z88.8 Allergy status to other drugs, medicaments and biological substances; Z79.899 Other long term (current) drug therapy
CPT/HCPCS: 72128; 73700; 96372; 99283; J1885; 99284

== ENCOUNTER 2024-04-12 10:47 | Emergency (ER) | payer MEDICARE, OTHER ==
[2024-04-12 14:11] VITALS: BP 106/69; PULSE 69
== END 2024-04-12 14:11 | disposition home or self-care (01) ==
LOC: MW.ED 10:47
DX: M79.672 Pain in left foot (principal); Z75.8 Other problems related to medical facilities and other health care; Z88.5 Allergy status to narcotic agent; Z91.048 Other nonmedicinal substance allergy status; Z79.899 Other long term (current) drug therapy; Z90.710 Acquired absence of both cervix and uterus
CPT/HCPCS: 73630-26-LT; 73630-LT; 99283

== ENCOUNTER 2024-05-01 08:37 | Day surgery (SDC) | payer MEDICARE, OTHER ==
[~2024-05-01 08:37] MED LIST changes: -Lactated Ringers 1,000 ML IV SCH; -Sodium Chloride 0.9% 10 ML SDV IV PRN; +Sodium Chloride 0.9% 20 ML SDV IV PRN
[2024-05-01] MEDS: Lactated Ringers 1,000 ML IV SCH (09:17)
[2024-05-01] MEDS ORDERED: Propofol 200 MG/20 ML SDV ONE (10:09)
[2024-05-01] MEDS ORDERED: dexmedeTOMIDine HCl 200 MCG/2 ML SDV ONE (10:22)
[2024-05-01] MEDS ORDERED: Water For Injection, Sterile 20 ML ONE (10:22)
[2024-05-01 11:22] VITALS: BP 95/54; PULSE 56
== END 2024-05-01 11:07 | disposition home or self-care (01) ==
LOC: MW.SDS 08:37
PROVIDERS: ATTEND Surgery
DX: K29.50 Unspecified chronic gastritis without bleeding (principal); K25.9 Gastric ulcer, unspecified as acute or chronic, without hemorrhage or perforation; M06.9 Rheumatoid arthritis, unspecified; E78.00 Pure hypercholesterolemia, unspecified; Z79.899 Other long term (current) drug therapy; Z88.5 Allergy status to narcotic agent
CPT/HCPCS: 43239; J2704; J7120; J3490